=== PATIENT | female | born 1995 | race Caucasian/White ===

== ENCOUNTER 2020-12-29 09:48 | Emergency (ER) | payer SELFPAY ==
[~2020-12-29] VITALS: Ht 165.1 cm; Wt 90.9 kg
[2020-12-29 09:50] VITALS: Ht 165.1 cm; Wt 90.9 kg
[2020-12-29 10:05] LABS: BASOPHILS 0.3 % (0-2); HEMATOCRIT 38.7 % (36.0-48.0); HEMOGLOBIN 13.3 g/dL (12-16); IMMATURE GRANULOCYTES 0.1 % (0-5); LYMPHOCYTE ABS# 2.18 10x3/uL (1.18-3.74); LYMPHOCYTES 30.8 % (15-50); MCH 30.2 pg (26.0-34.0); MCHC 34.4 g/dL (31.0-37.0); MEAN PLATELET VOLUME 9.6 fL (7.4-10.4); MONOCYTES 7.4 % (2-11); NEUTROPHIL ABS# 4.27 10x3/uL (1.56-6.13); NEUTROPHILS 60.4 % (40-80); PLATELET COUNT 266 10x3/uL (130-400); RDW 12.3 % (11.5-14.5); WBC 7.1 10x3/uL (4.8-10.8)
[2020-12-29 10:16] LABS: CALC OSMOLALITY 277 mosm/kg (275-300); CALCIUM 9.5 mg/dL (8.5-10.1); CARBON DIOXIDE 23.9 mmol/L (21.0-32.0); CHLORIDE - SERUM 105 mmol/L (98-107); GLUCOSE 96 mg/dL (74-106); POTASSIUM - SERUM 4.5 mmol/L (3.5-5.1); SODIUM 138 mmol/L (136-145); UREA NITROGEN 19 mg/dL (7-18); eGFR NON AFRICAN AMERICAN 71 mL/min (90-120)
[2020-12-29 10:34] LABS: ALKALINE PHOSPHATASE 77 U/L (30-120); ALT (SGPT) 30 U/L (10-68); BILIRUBIN - TOTAL 0.24 mg/dL (0.2-1.3); C-REACTIVE PROTEIN 0.3 mg/dL (0.0-0.9); CKMB 0.7 U/L (0.0-3.6); CREATINE KINASE 99 UL (21-215); PROTEIN - SERUM 7.5 g/dL (6.4-8.2); T4 THYROXIN - FREE 0.96 ng/dL (0.76-1.46); THYROID STIMULATING HORMONE 0.61 uIU/mL (0.36-3.74)
[2020-12-29 10:37] LABS: TROPONIN-I < 0.017 ng/mL (0.000-0.060)
[2020-12-29 11:20] LABS: ERYTHROCYTE SEDIMENTATION RATE 12 mm/hr (0-20)
== END 2020-12-29 11:39 | disposition home or self-care (01) ==
LOC: D.ER 09:48
PROVIDERS: Family Medicine
DX: R53.1 Weakness (principal); R53.83 Other fatigue